=== PATIENT | female | born 1980 | race African-American/Black ===

== ENCOUNTER 2016-11-14 21:52 | Emergency (ER) | payer OTHER ==
[~2016-11-14] VITALS: Ht 167.6 cm; Wt 59.0 kg
[2016-11-14] MEDS ORDERED: ONDANSETRON 4 MG TAB.RAPDIS ONE (22:22)
[2016-11-14] MEDS ORDERED: ONDANSETRON 4 MG TAB.RAPDIS SL STA (22:24)
[2016-11-14] MEDS ORDERED: IBUPROFEN 600 MG TABLET PO STA (22:24)
[2016-11-14] MEDS ORDERED: IBUPROFEN 600 MG TABLET PO ONE (22:25)
[2016-11-14 22:54] VITALS: BP 119/86
== END 2016-11-14 22:55 | disposition home or self-care (01) ==
LOC: ER 21:52
DX: A08.4 Viral intestinal infection, unspecified (principal); J06.9 Acute upper respiratory infection, unspecified
CPT/HCPCS: 99283; A4606; Q0162; Z7610

== ENCOUNTER 2023-11-13 15:07 | Emergency (ER) | payer OTHER ==
[~2023-11-13] VITALS: Ht 160 cm; Wt 63.5 kg
[2023-11-13] MEDS ORDERED: ALBUTEROL FS 2.5 MG/3 ML VIAL.NEB ONE (15:31)
[2023-11-13] MEDS ORDERED: IPRATROPIUM NEB FS 0.5 MG/2.5 ML AMPUL.NEB ONE (15:31)
[2023-11-13 15:41] VITALS: O2SAT 100
[2023-11-13] MEDS: IPRATROPIUM NEB FS 0.5 MG/2.5 ML AMPUL.NEB NEB ONE (15:41)
[2023-11-13] MEDS: ALBUTEROL FS 2.5 MG/3 ML VIAL.NEB NEB ONE (15:41)
[2023-11-13 15:51] VITALS: O2SAT 100
[2023-11-13 15:54] LABS: BASOPHILS # (AUTO) 0.1 K/uL (0.0-0.2); BASOPHILS % (AUTO) 1.1 % (0.0-2.0); EOSINOPHILS # (AUTO) 0.3 K/uL (0.0-0.7); EOSINOPHILS % (AUTO) 4.2 % (0.0-6.0); HEMATOCRIT 41 % (33-45); HEMOGLOBIN 13.5 g/dL (11.5-14.8); LYMPHOCYTES # (AUTO) 1.2 K/uL (0.8-4.8); LYMPHOCYTES % (AUTO) 19.7 % (20.0-44.0); MEAN CORPUSCULAR HEMOGLOBIN 31 PG (26.0-33.0); MEAN CORPUSCULAR HGB CONC 33 g/dl (31.0-36.0); MEAN CORPUSCULAR VOLUME 94 fL (82-100); MONOCYTES # (AUTO) 0.4 K/uL (0.1-1.30); MONOCYTES % (AUTO) 6.3 % (2.0-12.0); NEUTROPHILS # (AUTO) 4.2 K/uL (1.8-8.9); NEUTROPHILS % (AUTO) 68.7 % (43.0-81.0); PLATELET COUNT (AUTO) 252 K/uL (150-450); RED BLOOD CELL COUNT(AUTO) 4.34 MIL/uL (4.0-5.2); RED CELL DISTRIBUTION WIDTH 15.1 % (11.5-15.0); WHITE BLOOD COUNT (AUTO) 6.2 K/uL (4.3-11.0)
[2023-11-13 16:04] LABS: CALCIUM, SERUM 8.7 mg/dL (8.5-10.1); CARBON DIOXIDE 26 mmol/L (21-32); CHLORIDE 102 mmol/L (98-107); GLUCOSE 76 mg/dL (74-106); POTASSIUM 4.7 mmol/L (3.5-5.1); SODIUM SERUM 133 mmol/L (136-145); UREA NITROGEN, BLOOD 8 mg/dL (7-18)
[2023-11-13 16:10] LABS: ALANINE AMINOTRANSFERASE 49 U/L (12-78); ALBUMIN 3.7 g/dL (3.4-5.0); ALKALINE PHOSPHATASE 63 U/L (46-116); ASPARTATE AMINOTRANSFERASE 18 U/L (15-37); BILIRUBIN,DIRECT 0.2 mg/dL (0.0-0.2); BILIRUBIN,TOTAL 0.9 mg/dL (0.2-1.0); TOTAL PROTEIN, SERUM 7.7 g/dL (6.4-8.2)
[2023-11-13 16:14] LABS: SALICYLATE 2.3 mg/dL (2.8-20.0)
[2023-11-13 16:25] LABS: PARTIAL THROMBOPLASTIN TIME 25.1 SEC (24.3-34.3); PROTHROMBIN TIME 10.3 SECS (9.2-11.1)
[2023-11-13 17:46] VITALS: BP 139/99; TEMP 98.7; O2SAT 100
== END 2023-11-13 17:46 | disposition home or self-care (01) ==
LOC: ER 15:15
DX: R55 Syncope and collapse (principal)
CPT/HCPCS: 36415; 71045-TC; 80048-TC; 80076-TC; 84484-TC; 85025-TC; 85730-TC

== ENCOUNTER 2024-04-23 15:05 | Emergency (ER) | payer OTHER ==
[~2024-04-23] VITALS: Ht 160 cm; Wt 68.5 kg
[2024-04-23] MEDS ORDERED: predniSONE 20 MG TABLET ONE ×2 (15:13→15:20)
[2024-04-23] MEDS: predniSONE 20 MG TABLET PO ONE (15:16)
[2024-04-23] MEDS ORDERED: ALBUTEROL FS 2.5 MG/3 ML VIAL.NEB ONE (15:19)
[2024-04-23] MEDS ORDERED: IPRATROPIUM NEB FS 0.5 MG/2.5 ML AMPUL.NEB ONE (15:19)
[2024-04-23 15:28] VITALS: O2SAT 95
[2024-04-23] MEDS: ALBUTEROL FS 2.5 MG/3 ML VIAL.NEB CONTNEB ONE (15:28)
[2024-04-23] MEDS: IPRATROPIUM NEB FS 0.5 MG/2.5 ML AMPUL.NEB NEB ONE (15:28)
[2024-04-23 16:05] VITALS: O2SAT 97
[2024-04-23] MEDS ORDERED: PRED50TA PO (16:58)
[2024-04-23] MEDS ORDERED: ALBU18HF2 INH (16:58)
[2024-04-23] MEDS ORDERED: BENZ-13 PO (17:02)
[2024-04-23 17:08] VITALS: BP 125/77; TEMP 98; O2SAT 97
== END 2024-04-23 17:08 | disposition home or self-care (01) ==
LOC: ER 15:37
DX: J44.89 Other specified chronic obstructive pulmonary disease (principal); R07.89 Other chest pain
CPT/HCPCS: 99283; 71045; 94799; 94640; J7512

== ENCOUNTER 2024-05-19 23:41 | Emergency (ER) | payer OTHER ==
[~2024-05-19] VITALS: Ht 160 cm; Wt 68.0 kg
[~2024-05-19 23:41] MED LIST: ALBU18HF2 INH; BENZ-13 PO; PRED50TA PO
[2024-05-19] MEDS ORDERED: dexaMETHasone SOD PHOSPHATE 1 ML ONE (23:57)
[2024-05-20] VITALS: O2SAT 99
[2024-05-20] MEDS: dexaMETHasone SOD PHOSPHATE 4 MG/ML VIAL IM ONE
[2024-05-20] MEDS: ALBUTEROL FS 2.5 MG/0.5 ML VIAL.NEB NEB ONE
[2024-05-20] MEDS ORDERED: ALBUTEROL FS 2.5 MG/0.5 ML VIAL.NEB ONE (00:02)
[2024-05-20 00:20] VITALS: O2SAT 100
[2024-05-20] MEDS ORDERED: PRED50TA PO (00:22)
[2024-05-20] MEDS ORDERED: ALBU90AE INH (00:28)
[2024-05-20 00:32] VITALS: BP 142/87; TEMP 98; O2SAT 100
== END 2024-05-20 00:33 | disposition home or self-care (01) ==
LOC: ER 23:42
DX: J98.01 Acute bronchospasm (principal); J44.89 Other specified chronic obstructive pulmonary disease; Z79.52 Long term (current) use of systemic steroids
CPT/HCPCS: 99283; 96372; 94640; J1100

== ENCOUNTER 2024-07-08 17:40 | Emergency (ER) | payer OTHER ==
[~2024-07-08] VITALS: Ht 160 cm; Wt 68.0 kg
[~2024-07-08 17:40] MED LIST changes: +ALBU90AE INH
[2024-07-08] MEDS ORDERED: methylPREDNISolone SOD SUCC 125 MG/2ML VIAL IV ONE (18:00)
[2024-07-08] MEDS ORDERED: ALBUTEROL FS 2.5 MG/3 ML VIAL.NEB ONE (18:22)
[2024-07-08] MEDS ORDERED: IPRATROPIUM NEB FS 0.5 MG/2.5 ML AMPUL.NEB ONE (18:22)
[2024-07-08 18:28] VITALS: O2SAT 96
[2024-07-08] MEDS: ALBUTEROL FS 2.5 MG/3 ML VIAL.NEB NEB ONE (18:28)
[2024-07-08] MEDS: IPRATROPIUM NEB FS 0.5 MG/2.5 ML AMPUL.NEB NEB ONE (18:28)
[2024-07-08 18:38] VITALS: O2SAT 99
[2024-07-08] MEDS ORDERED: BENZ-13 PO (18:44)
[2024-07-08] MEDS ORDERED: PRED50TA PO (18:44)
[2024-07-08] MEDS ORDERED: dexaMETHasone SOD PHOSPHATE 4 MG/ML VIAL ONE (18:50)
[2024-07-08] MEDS: dexaMETHasone SOD PHOSPHATE 4 MG/ML VIAL IM ONE (18:54)
[2024-07-08 18:56] VITALS: BP 100/116; TEMP 97.8; O2SAT 99
== END 2024-07-08 18:57 | disposition home or self-care (01) ==
LOC: ER 17:51
DX: J45.909 Unspecified asthma, uncomplicated (principal); Z79.52 Long term (current) use of systemic steroids; R06.02 Shortness of breath
CPT/HCPCS: 99285; 96372; 94640; J1100

== ENCOUNTER 2025-02-13 23:37 | Emergency (ER) | payer OTHER ==
[~2025-02-13] VITALS: Ht 160 cm; Wt 68.0 kg
[2025-02-14] MEDS: ALBUTEROL FS 2.5 MG/0.5 ML VIAL.NEB NEB ONE (00:54)
[2025-02-14] MEDS ORDERED: ALBUTEROL FS 2.5 MG/0.5 ML VIAL.NEB ONE (00:57)
[2025-02-14] MEDS ORDERED: dexaMETHasone SOD PHOSPHATE 1 ML ONE (01:02)
[2025-02-14] MEDS: dexaMETHasone SOD PHOSPHATE 4 MG/ML VIAL IM ONE (01:08)
[2025-02-14 01:33] VITALS: BP 125/83; TEMP 98.9; O2SAT 96
[2025-02-14] MEDS ORDERED: BREO ELLIPTA IH (07:39)
[2025-02-14] MEDS ORDERED: ALBU6.7H9 IH (07:39)
== END 2025-02-14 01:34 | disposition left against medical advice (07) ==
LOC: ER 23:38
DX: J98.01 Acute bronchospasm (principal); J44.1 Chronic obstructive pulmonary disease with (acute) exacerbation; F17.200 Nicotine dependence, unspecified, uncomplicated; Z79.52 Long term (current) use of systemic steroids; Z79.899 Other long term (current) drug therapy; Z60.2 Problems related to living alone
CPT/HCPCS: 99283; 96372; J1100

== ENCOUNTER 2025-02-14 04:47 | Inpatient (IN) | payer OTHER ==
[2025-02-14] VITALS (11 sets, daily range): BP systolic 124–130; BP diastolic 75–96; TEMP 97.5–97.7; O2SAT 93–100
[~2025-02-14] VITALS: Ht 160 cm; Wt 63.3 kg
[2025-02-14] MEDS: ALBUTEROL FS 2.5 MG/0.5 ML VIAL.NEB NEB ONE (04:59)
[2025-02-14] MEDS ORDERED: ALBUTEROL FS 2.5 MG/0.5 ML VIAL.NEB ONE (05:00)
[2025-02-14] MEDS ORDERED: EPINEPHRINE (1:1000) 1 MG/ML AMPUL ONE (06:12)
[2025-02-14] MEDS ORDERED: Magnesium 1GM/D5W 100ML PREMIX 100 ML IV ONE (06:12)
[2025-02-14] MEDS: IPRATROPIUM NEB FS 0.5 MG/2.5 ML AMPUL.NEB NEB ONE (06:13)
[2025-02-14] MEDS: ALBUTEROL FS 2.5 MG/3 ML VIAL.NEB CONTNEB ONE (06:13)
[2025-02-14] MEDS ORDERED: IPRATROPIUM NEB FS 0.5 MG/2.5 ML AMPUL.NEB ONE (06:16)
[2025-02-14] MEDS ORDERED: ALBUTEROL FS 2.5 MG/3 ML VIAL.NEB ONE (06:16)
[2025-02-14] MEDS: Magnesium 1GM/D5W 100ML PREMIX 200 ML IV ONE (06:23)
[2025-02-14] MEDS: EPINEPHRINE (1:1000) 1 MG/ML AMPUL SUBCUT ONE (06:24)
[2025-02-14 06:31] LABS: PLATELET COUNT (AUTO) 181 K/uL (150-450); RED BLOOD CELL COUNT(AUTO) 3.66 MIL/uL (4.0-5.2); RED CELL DISTRIBUTION WIDTH 13.8 % (11.5-15.0); WHITE BLOOD COUNT (AUTO) 8.0 K/uL (4.3-11.0)
[2025-02-14 06:38] LABS: CALCIUM, SERUM 8.7 mg/dL (8.5-10.1); CREATININE 1.3 mg/dL (0.6-1.3); SODIUM SERUM 141.0 mmol/L (136-145); UREA NITROGEN, BLOOD 12.0 mg/dL (7-18)
[2025-02-14 06:45] LABS: ABG BASE EXCESS -3.6 mmol/L (-2.0-3.0); ABG OXYGEN SATURATION 96.2 % (94.0-98.0); ABG PCO2 33.6 mmHg (32.0-45.0); ABG PH 7.402 (7.350-7.450); ABG PO2 88.8 mmHg (83.0-108.0); ABG TOTAL HEMOGLOBIN 12.1 G/dL (12.0-16.0); FLOW, BLOOD GAS 2.00 L/min (0.00-30.00); FRACTIONATED INSPIRED OXYGEN 28.0 %; SITE, ABG LEFT RADIAL
[2025-02-14] MEDS ORDERED: BREO ELLIPTA IH (07:39)
[2025-02-14] MEDS ORDERED: ALBU6.7H9 IH (07:39)
[2025-02-14] MEDS ORDERED: ONDANSETRON HCL/PF 4 MG/2 ML VIAL IVP PRN (13:30)
[2025-02-14] MEDS ORDERED: Z GUARD REMEDY 4 OZ OINT TP PRN (13:30)
[2025-02-14] MEDS: ALBUTEROL FS 2.5 MG/3 ML VIAL.NEB NEB SCH (13:30)
[2025-02-14] MEDS: IPRATROPIUM NEB FS 0.5 MG/2.5 ML AMPUL.NEB NEB SCH (13:30)
[2025-02-14] MEDS: ENOXAPARIN SODIUM 40 MG/0.4 ML DISP.SYRIN SQ SCH (14:08)
[2025-02-14] MEDS: AZITHROMYCIN 250 MG TABLET PO ONE (14:08)
[2025-02-14] MEDS: FUROSEMIDE 100 MG/10 ML VIAL IV STA (20:22)
[2025-02-14] MEDS: POTASSIUM CHLORIDE 20 MEQ TAB.PRT.SR PO ONE (20:22)
[2025-02-14] MEDS: MONTELUKAST SODIUM (10MG) 10 MG TABLET PO SCH (21:42)
[2025-02-14] MEDS: METOPROLOL TARTRATE 25 MG TABLET PO SCH (21:43)
[2025-02-15] MEDS: FUROSEMIDE 40 MG/4 ML VIAL IV ONE (02:36)
[2025-02-15] MEDS: MAG HYDROX/AL HYDROX/SIMETH 30 ML UDC PO PRN (02:44)
[2025-02-15] MEDS: ACETAMINOPHEN 325 MG TABLET PO PRN (02:45)
[2025-02-15 05:27] LABS: ABG BASE EXCESS 5.3 mmol/L (-2.0-3.0); ABG OXYGEN SATURATION 98.0 % (94.0-98.0); ABG PCO2 42.9 mmHg (32.0-45.0); ABG PH 7.459 (7.350-7.450); ABG PO2 96.0 mmHg (83.0-108.0); ABG TOTAL HEMOGLOBIN 12.3 G/dL (12.0-16.0); FLOW, BLOOD GAS 3.00 L/min (0.00-30.00); FRACTIONATED INSPIRED OXYGEN 32.0 %; SITE, ABG RIGHT RADIAL
[2025-02-15 06:54] LABS: CALCIUM, SERUM 9.6 mg/dL (8.5-10.1); CREATININE 1.3 mg/dL (0.6-1.3); PHOSPHORUS 3.1 mg/dL (2.5-4.9); SODIUM SERUM 137.0 mmol/L (136-145); UREA NITROGEN, BLOOD 23.0 mg/dL (7-18)
[2025-02-15 06:56] LABS: PLATELET COUNT (AUTO) 186 K/uL (150-450); RED BLOOD CELL COUNT(AUTO) 3.42 MIL/uL (4.0-5.2); RED CELL DISTRIBUTION WIDTH 13.5 % (11.5-15.0); WHITE BLOOD COUNT (AUTO) 14.5 K/uL (4.3-11.0)
[2025-02-15 07:23] LABS: LDL 102.0 mg/dL (0-99)
[2025-02-15 07:30] VITALS: O2SAT 99
[2025-02-15 08:32] VITALS: BP 123/90; TEMP 98.1; O2SAT 99
[2025-02-15] MEDS: PANTOPRAZOLE 40 MG TABLET.DR PO SCH (08:50)
[2025-02-15] MEDS: FUROSEMIDE 40 MG/4 ML VIAL IV SCH (08:51)
[2025-02-15] MEDS: ALBUTEROL FS 2.5 MG/3 ML VIAL.NEB NEB SCH (10:42)
[2025-02-15 12:00] VITALS: BP 126/88; TEMP 97.9; O2SAT 99
[2025-02-15 12:45] LABS: PREGNANCY TEST URINE QUAL NEGATIVE (NEGATIVE)
[2025-02-15] MEDS: AZITHROMYCIN 250 MG TABLET PO SCH (14:27)
[2025-02-15] MEDS: METOPROLOL TARTRATE 25 MG TABLET PO SCH (14:27)
[2025-02-15 16:18] VITALS: BP 106/67; TEMP 98.2; O2SAT 99
[2025-02-15 20:00] VITALS: BP 107/76; TEMP 98; O2SAT 100
[2025-02-15 20:58] VITALS: BP 107/76; TEMP 98; O2SAT 100
[2025-02-16 04:00] VITALS: BP 121/78; TEMP 98.1; O2SAT 100
[2025-02-16 04:31] VITALS: BP 121/78; TEMP 98.1; O2SAT 100
[2025-02-16 06:16] LABS: PLATELET COUNT (AUTO) 209 K/uL (150-450); RED BLOOD CELL COUNT(AUTO) 3.94 MIL/uL (4.0-5.2); RED CELL DISTRIBUTION WIDTH 13.6 % (11.5-15.0); WHITE BLOOD COUNT (AUTO) 18.0 K/uL (4.3-11.0)
[2025-02-16 06:30] LABS: ASPARTATE AMINOTRANSFERASE 7.0 U/L (15-37); CALCIUM, SERUM 9.3 mg/dL (8.5-10.1); CREATININE 1.1 mg/dL (0.6-1.3); PHOSPHORUS 4.2 mg/dL (2.5-4.9); SODIUM SERUM 138.0 mmol/L (136-145); TOTAL PROTEIN, SERUM 7.3 g/dL (6.4-8.2); UREA NITROGEN, BLOOD 34.0 mg/dL (7-18)
[2025-02-16 07:30] VITALS: BP 114/78; TEMP 98.1; O2SAT 99
[2025-02-16 07:49] VITALS: O2SAT 99
[2025-02-16 08:16] VITALS: BP 114/78
[2025-02-16] MEDS: METOPROLOL SUCCINATE 50 MG TAB.SR.24H PO SCH (08:16)
[2025-02-16] MEDS ORDERED: PRED20TA PO (09:41)
[2025-02-16] MEDS ORDERED: METO50TA7 PO (09:41)
[2025-02-16 10:41] VITALS: O2SAT 99
== END 2025-02-16 12:12 | disposition home or self-care (01) | DRG 200 ==
LOC: ER 04:50 → TELE 07:56 → MED 20:35 → TELE 02-15 09:37 → MED 02-15 10:04 → TELE 02-15 13:51 → MED 02-16 08:54
PROVIDERS: ADMIT Nurse Practitioner Acute Care
DX: I05.2 Rheumatic mitral stenosis with insufficiency (principal); I50.33 Acute on chronic diastolic (congestive) heart failure; I27.22 Pulmonary hypertension due to left heart disease; F17.210 Nicotine dependence, cigarettes, uncomplicated; J44.89 Other specified chronic obstructive pulmonary disease
CPT/HCPCS: 36415; 36600; 71045-TC; 80048-TC; 80053-TC; 80061-TC; 82803-TC; 83735-TC; 83880; 84100-TC; 84443-TC; 84484-TC; 84703-TC; 85025-TC; 93307-TC; 93308-TC; 94799-TC; G0378; J0169; J1650; J1938; J2919; J3475